=== PATIENT | female | born 1960 | race Caucasian/White ===

== ENCOUNTER 2016-10-23 01:14 | Emergency (ER) | payer OTHER | END 2016-10-23 04:20 | disposition home or self-care (01) | LOC: ER1 01:14 | DX: M54.32 Sciatica, left side (principal); E11.9 Type 2 diabetes mellitus without complications; I10 Essential (primary) hypertension; Z90.49 Acquired absence of other specified parts of digestive tract | CPT/HCPCS: 96372; 99283; J1100; J1885 ==

== ENCOUNTER → 2016-12-21 | Outpatient (CLI) | payer OTHER | LOC: KOH-I 10:27 | DX: M54.16 Radiculopathy, lumbar region (principal); M51.36 Other intervertebral disc degeneration, lumbar region | CPT/HCPCS: 72110 ==

== ENCOUNTER → 2020-12-05 | Outpatient (CLI) | payer OTHER | LOC: MAMO 06-05 10:30 | DX: Z12.31 Encounter for screening mammogram for malignant neoplasm of breast (principal) | CPT/HCPCS: 77063; 77067 ==

== ENCOUNTER → 2021-12-29 | Outpatient (CLI) | payer OTHER | LOC: MAMO 10:43 | DX: Z12.31 Encounter for screening mammogram for malignant neoplasm of breast (principal) | CPT/HCPCS: 77063; 77067 ==

== ENCOUNTER → 2022-03-06 | Outpatient (CLI) | payer OTHER | LOC: KOH-I 09:53 | DX: J30.1 Allergic rhinitis due to pollen (principal); R05.3 Chronic cough; E66.9 Obesity, unspecified; H10.45 Other chronic allergic conjunctivitis; J34.3 Hypertrophy of nasal turbinates; R94.2 Abnormal results of pulmonary function studies | CPT/HCPCS: 71046 ==